=== PATIENT | female | born 1935 | race Caucasian/White ===

== ENCOUNTER 2017-02-25 09:19 | Inpatient (IN) | payer OTHER ==
[~2017-02-25] VITALS: Ht 170.2 cm; Wt 76.9 kg
[~2017-02-25 09:19] MED LIST: BAYER BACK & B1 EACH PO; Bactrim,Septra DS 80 PO; CEFTIN500 MG PO; Coumadin Daily Dose PO; LEVOTHYROXINE75 MCG PO; LEXAPRO20 MG PO; LOVASTATIN40 MG PO; OXYCODONE HCL5 MG PO; PROTONIX40 MG PO; Protonix PO; VITAMIN D31000 UNI2 PO; ZYRTEC10 M3 PO
[2017-02-25 10:56] LABS: HEMATOCRIT 36.3 % (36.0-46.0); MCH 30.1 PG (29.0-34.0); MCHC 33.9 G/DL (30.0-36.0); PLATELET COUNT 285 K/uL (156-360); RBC DIS.WIDTH-CV 13.9 % (11.8-14.6); RBC DIS.WIDTH-SD 45.7 % (39-53); RED BLOOD COUNT 4.08 M/uL (3.80-5.20); WHITE BLOOD COUNT 13.1 K/uL (4.1-10.2)
[2017-02-25 11:03] LABS: CHLORIDE 96 mEq/L (99-109); POTASSIUM 3.9 mEq/L (3.7-5.4); SODIUM 123 mEq/L (136-147)
[2017-02-25 11:05] LABS: GLUCOSE 105 mg/dL (70-99)
[2017-02-25 11:07] LABS: ANION GAP 8 MEQ/L (2-14)
[2017-02-25 11:09] LABS: GFR ESTIMATE (CALCULATED) > 59 mL/min/
[2017-02-25 11:10] LABS: UREA NITROGEN (BUN) 14 mg/dL (9-23)
[2017-02-25 11:14] LABS: TROP-I INTERPRETATION NEGATIVE; TROPONIN-I 0.03 ng/mL (0.0-0.30)
[2017-02-25 15:26] VITALS: BP 123/61
[2017-02-25 17:15] LABS: ADD MIUA? NO; BILIRUBIN NEGATIVE; BLOOD NEGATIVE; COLOR YELLOW ((YELLOW)); GLUCOSE (STRIP) NEGATIVE; KETONES 20; LEUKOCYTES NEGATIVE; NITRITE NEGATIVE; PROTEIN (STRIP) NEGATIVE; SPECIFIC GRAVITY 1.009 (1.000-1.030); UCUL ADDED? NO; UROBILINOGEN 0.2 MG/DL (0.2-1.0)
[2017-02-25 17:33] LABS: TROP-I INTERPRETATION NEGATIVE; TROPONIN-I 0.03 ng/mL (0.0-0.30)
[2017-02-25 19:23] VITALS: BP 123/59
[2017-02-25 23:33] VITALS: BP 100/55
[2017-02-25 23:57] LABS: TROP-I INTERPRETATION NEGATIVE; TROPONIN-I 0.02 ng/mL (0.0-0.30)
[2017-02-26 04:03] VITALS: BP 125/59
[2017-02-26 07:37] LABS: HEMATOCRIT 38.7 % (36.0-46.0); MCH 30.9 PG (29.0-34.0); MCHC 34.4 G/DL (30.0-36.0); MEAN PLAT.VOLUME 10.6 uM^3 (9.5-12.4); PLATELET COUNT 327 K/uL (156-360); RBC DIS.WIDTH-CV 14.2 % (11.8-14.6); RBC DIS.WIDTH-SD 46.4 % (39-53); WHITE BLOOD COUNT 8.4 K/uL (4.1-10.2)
[2017-02-26 07:40] VITALS: BP 131/61
[2017-02-26 08:08] LABS: ANION GAP 6 MEQ/L (2-14); CHLORIDE 111 MEQ/L (99-109); GFR ESTIMATE (CALCULATED) > 59 mL/min/; GLUCOSE 84 mg/dL (70-99); POTASSIUM 4.3 MEQ/L (3.7-5.4); SAMPLE HEMOLYSIS CHECK 0; SAMPLE ICTERIC CHECK 0; SAMPLE LIPEMIA CHECK 0; UREA NITROGEN (BUN) 10 mg/dL (9-23)
[2017-02-26 08:21] LABS: SODIUM 141 MEQ/L (136-147)
[2017-02-26 11:10] VITALS: BP 130/62
[2017-02-26 15:35] VITALS: BP 123/55
[2017-02-26 20:03] VITALS: BP 127/65
[2017-02-26] MEDS ORDERED: ANTIVERT25 MG PO (20:38)
[2017-02-27 00:02] VITALS: BP 142/61
[2017-02-27 04:24] VITALS: BP 135/86
[2017-02-27 06:59] LABS: ANION GAP 6 MEQ/L (2-14); CHLORIDE 110 MEQ/L (99-109); GFR ESTIMATE (CALCULATED) > 59 mL/min/; GLUCOSE 84 mg/dL (70-99); POTASSIUM 4.3 MEQ/L (3.7-5.4); SAMPLE HEMOLYSIS CHECK 0; SAMPLE ICTERIC CHECK 0; SAMPLE LIPEMIA CHECK 0; SODIUM 139 MEQ/L (136-147); UREA NITROGEN (BUN) 12 mg/dL (9-23)
[2017-02-27 07:35] VITALS: BP 138/82; BP 183/74
== END 2017-02-27 11:04 | disposition home or self-care (01) | DRG 641 ==
LOC: EME 09:19 → EDOF 12:09 → CANRESERV 12:16 → ENRESERV 12:16 → 2EAST 15:05
PROVIDERS: Emergency Medicine; Internal Medicine
DX: E87.1 Hypo-osmolality and hyponatremia (principal); E03.9 Hypothyroidism, unspecified; H81.20 Vestibular neuronitis, unspecified ear; K21.9 Gastro-esophageal reflux disease without esophagitis; E86.0 Dehydration; E78.5 Hyperlipidemia, unspecified; I73.9 Peripheral vascular disease, unspecified; F41.9 Anxiety disorder, unspecified; E11.9 Type 2 diabetes mellitus without complications; Z90.81 Acquired absence of spleen; Z86.711 Personal history of pulmonary embolism; Z79.82 Long term (current) use of aspirin; Z82.49 Family history of ischemic heart disease and other diseases of the circulatory system
CPT/HCPCS: 70551; 71010; 80048; 81003; 82533 91; 83930; 83935; 84300; 84443; 84484; 85027; 93005; 93880; 99281; 99285; J1650; J2405; J7030; S0028

== ENCOUNTER 2017-10-14 09:38 | Emergency (ER) | payer OTHER ==
[~2017-10-14] VITALS: Ht 170.2 cm; Wt 71.8 kg
[~2017-10-14 09:38] MED LIST changes: +ANTIVERT25 MG PO
[2017-10-14 10:31] LABS: APPEARANCE CLEAR ((CLEAR)); BILIRUBIN NEGATIVE; BLOOD NEGATIVE; COLOR YELLOW ((YELLOW)); GLUCOSE (STRIP) NEGATIVE; KETONES NEGATIVE; LEUKOCYTES SMALL; NITRITE POSITIVE; PROTEIN (STRIP) NEGATIVE; SPECIFIC GRAVITY 1.011 (1.000-1.030); UROBILINOGEN 0.2 MG/DL (0.2-1.0)
[2017-10-14 10:36] LABS: BASOPHIL COUNT 0.1 K/uL (0-0.1); EOSINOPHIL (%) 2.1 % (0-5); EOSINOPHIL COUNT 0.2 K/uL (0-0.3); HEMATOCRIT 42.2 % (36.0-46.0); HEMOGLOBIN 14.2 G/DL (11.9-15.5); IMMATURE GRANULOCYTE (%) 0.2 % (0.0-0.7); LYMPHOCYTE (%) 28.4 % (15-42); LYMPHOCYTE COUNT 2.3 K/uL (1.0-2.8); MCH 30.3 PG (29.0-34.0); MCHC 33.6 G/DL (30.0-36.0); MCV 90.2 FL (83-99); MONOCYTE (%) 6.5 % (3-12); MONOCYTE COUNT 0.5 K/uL (0-0.8); NEUTROPHIL (%) 61.8 % (45-76); PLATELET COUNT 331 K/uL (156-360); RBC DIS.WIDTH-CV 14.1 % (11.8-14.6); RBC DIS.WIDTH-SD 46.9 % (39-53); RED BLOOD COUNT 4.68 M/uL (3.80-5.20); WHITE BLOOD COUNT 8.1 K/uL (4.1-10.2)
[2017-10-14 10:49] LABS: CHLORIDE 108 mEq/L (99-109); POTASSIUM 4.3 mEq/L (3.7-5.4); SODIUM 142 mEq/L (136-147)
[2017-10-14 10:50] LABS: GLUCOSE 97 mg/dL (70-99)
[2017-10-14 10:53] LABS: BACTERIA 1+ /HPF; EPITHELIAL CELLS NONE SEEN /HPF; MUCUS TRACE /LPF; RED BLOOD CELLS 0-5 /HPF (0-5); UCUL ADDED? YES
[2017-10-14 10:54] LABS: CREATININE 0.8 mg/dL (0.6-1.3); GFR ESTIMATE (CALCULATED) > 59 mL/min/
[2017-10-14 10:55] LABS: UREA NITROGEN (BUN) 17 mg/dL (9-23)
[2017-10-14] MEDS ORDERED: MECLIZINE HCL25 MG PO (12:14)
[2017-10-14] MEDS ORDERED: BACTRIM,SEPT1 TABLET PO (12:14)
[2017-10-14 12:43] VITALS: BP 145/64
== END 2017-10-14 12:46 | disposition home or self-care (01) ==
LOC: EME 09:38
PROVIDERS: Emergency Medicine
DX: N39.0 Urinary tract infection, site not specified (principal); E11.9 Type 2 diabetes mellitus without complications; K21.9 Gastro-esophageal reflux disease without esophagitis; E03.9 Hypothyroidism, unspecified; Z87.440 Personal history of urinary (tract) infections; Z86.718 Personal history of other venous thrombosis and embolism; Z88.1 Allergy status to other antibiotic agents
CPT/HCPCS: 80048; 81003; 85025; 87077; 87086; 87186; 99281; 99285; J0696; J7030

== ENCOUNTER 2017-12-04 00:35 | Observation (INO) | payer OTHER ==
[~2017-12-04] VITALS: Ht 170.2 cm; Wt 90.5 kg
[~2017-12-04 00:35] MED LIST changes: +BACTRIM,SEPT1 TABLET PO; +MECLIZINE HCL25 MG PO; +VITAMIN D2000 UNIT PO; -VITAMIN D31000 UNI2 PO
[2017-12-04 02:00] LABS: HEMATOCRIT 40.2 % (36.0-46.0); HEMOGLOBIN 13.3 G/DL (11.9-15.5); MCH 30.5 PG (29.0-34.0); MCHC 33.1 G/DL (30.0-36.0); MCV 92.2 FL (83-99); PLATELET COUNT 297 K/uL (156-360); RBC DIS.WIDTH-CV 14.1 % (11.8-14.6); RBC DIS.WIDTH-SD 47.9 % (39-53); RED BLOOD COUNT 4.36 M/uL (3.80-5.20); WHITE BLOOD COUNT 11.5 K/uL (4.1-10.2)
[2017-12-04 02:09] LABS: CHLORIDE 108 mEq/L (99-109); POTASSIUM 4.3 mEq/L (3.7-5.4); SODIUM 141 mEq/L (136-147)
[2017-12-04 02:10] LABS: GLUCOSE 121 mg/dL (70-99)
[2017-12-04 02:14] LABS: CREATININE 0.8 mg/dL (0.6-1.3); GFR ESTIMATE (CALCULATED) > 59 mL/min/
[2017-12-04 02:15] LABS: UREA NITROGEN (BUN) 16 mg/dL (9-23)
[2017-12-04 02:18] LABS: INTER. NORMALIZED RATIO 0.9
[2017-12-04 02:23] LABS: TROP-I INTERPRETATION NEGATIVE; TROPONIN-I 0.03 ng/mL (0.0-0.30)
[2017-12-04 03:03] LABS: APPEARANCE CLEAR ((CLEAR)); BILIRUBIN NEGATIVE; BLOOD NEGATIVE; COLOR COLORLESS ((YELLOW)); GLUCOSE (STRIP) NEGATIVE; KETONES NEGATIVE; LEUKOCYTES NEGATIVE; NITRITE NEGATIVE; PROTEIN (STRIP) NEGATIVE; SPECIFIC GRAVITY 1.003 (1.000-1.030); UCUL ADDED? NO; UROBILINOGEN 0.2 MG/DL (0.2-1.0)
[2017-12-04 05:30] VITALS: BP 147/65
[2017-12-04 07:02] VITALS: BP 130/64
[2017-12-04 09:35] LABS: TROP-I INTERPRETATION NEGATIVE; TROPONIN-I 0.02 ng/mL (0.0-0.30)
[2017-12-04] MEDS ORDERED: ANTIVERT25 MG PO (10:11)
[2017-12-04] MEDS ORDERED: FLONASE16 G1 BOTH NARES (10:37)
[2017-12-04] MEDS ORDERED: PRILOSEC20 MG PO (10:37)
[2017-12-04] MEDS ORDERED: CRESTOR5 MG PO (10:38)
[2017-12-04] MEDS ORDERED: VITAMIN B122500 MCG PO (10:39)
[2017-12-04] MEDS ORDERED: LOW DOSE ASPIRI81 M1 PO (10:40)
[2017-12-04] MEDS ORDERED: ACETAMINOPHEN325 M1 PO (10:41)
[2017-12-04] MEDS ORDERED: ADVIL,NUPRIN,M200 MG PO (10:41)
[2017-12-04] MEDS ORDERED: ALLERGY RELIEF10 M5 PO (10:42)
== END 2017-12-04 11:14 | disposition home or self-care (01) ==
LOC: EME → EDBD 00:35 → EME 00:35 → EDOF 04:11 → ENRESERV 04:12 → 4SOUTH 05:24
PROVIDERS: Emergency Medicine; Hospitalist
DX: R42 Dizziness and giddiness (principal); R26.89 Other abnormalities of gait and mobility; K21.9 Gastro-esophageal reflux disease without esophagitis; E03.9 Hypothyroidism, unspecified; Z86.711 Personal history of pulmonary embolism; Z90.81 Acquired absence of spleen; Z90.710 Acquired absence of both cervix and uterus; Z88.1 Allergy status to other antibiotic agents; Z88.8 Allergy status to other drugs, medicaments and biological substances; D72.829 Elevated white blood cell count, unspecified
CPT/HCPCS: 70450; 80048; 81003; 84484; 85027; 85610; 85730; 93005; 99281; 99285; G0378; J1644; J7030